=== PATIENT | female | born 1985 | race Caucasian/White ===

== ENCOUNTER 2020-09-21 19:25 | Emergency (ER) | payer SELFPAY ==
[~2020-09-21] VITALS: Ht 154.9 cm; Wt 71.0 kg
[2020-09-21 19:27] VITALS: BP 107/73
== END 2020-09-21 19:46 | disposition left against medical advice (07) ==
LOC: ER 19:25
DX: Z53.21 Procedure and treatment not carried out due to patient leaving prior to being seen by health care provider (principal)
CPT/HCPCS: 93005

== ENCOUNTER 2022-07-08 00:28 | Observation (INO) | payer SELFPAY ==
[~2022-07-08] VITALS: Ht 154.9 cm; Wt 65.8 kg
[2022-07-08] MEDS ORDERED: PREN1TAB78 PO (02:25)
== END 2022-07-08 03:00 | disposition home or self-care (01) ==
LOC: 8 EST LDRP 00:28 → EDBD 00:28
PROVIDERS: ADMIT Obstetrics & Gynecology; ATTEND Obstetrics & Gynecology
DX: O46.92 Antepartum hemorrhage, unspecified, second trimester (principal); O62.9 Abnormality of forces of labor, unspecified; Z3A.25 25 weeks gestation of pregnancy; Z98.891 History of uterine scar from previous surgery
CPT/HCPCS: 59025; 76805; G0378; 99281